=== PATIENT | female | born 1950 | race Caucasian/White ===

== ENCOUNTER 2017-08-02 13:06 | Emergency (ER) | payer SELFPAY ==
[~2017-08-02] VITALS: Ht 166.4 cm; Wt 50.0 kg
[~2017-08-02 13:06] MED LIST: CELLCEPT500 MG PO; LIPITOR40 MG PO; MAGNESIUM-OX400 MG PO; NEXIUM40 M1 PO; PREDNISONE5 MG PO; [UNRECOGNIZED DRUG - OTHER]
[2017-08-02 14:56] LABS: INFLUENZA A NONE DETECTED (NONE DETECT); INFLUENZA B NONE DETECTED (NONE DETECT)
[2017-08-02] MEDS ORDERED: DOXYCYC MONO100 M2 PO (15:10)
[2017-08-02 15:20] VITALS: BP 128/78
== END 2017-08-02 15:20 | disposition home or self-care (01) | DRG 202 ==
LOC: ED 13:06
PROVIDERS: Family Medicine
DX: J40 Bronchitis, not specified as acute or chronic (principal); Z94.0 Kidney transplant status; R05 Cough; R50.9 Fever, unspecified; R09.81 Nasal congestion; Z99.2 Dependence on renal dialysis; M79.1 Myalgia; R51 Headache; H92.03 Otalgia, bilateral

== ENCOUNTER 2017-08-06 14:40 | Observation (INO) | payer SELFPAY ==
[~2017-08-06] VITALS: Ht 167.6 cm; Wt 52.8 kg
[~2017-08-06 14:40] MED LIST changes: +DOXYCYC MONO100 M2 PO
[2017-08-06 15:18] LABS: HEMATOCRIT 42.3 % (37.0-47.0); HEMOGLOBIN 13.7 g/dl (12.0-16.0); IMMATURE GRANULOCYTES 0.3 % (0.0-1.0); MEAN CORPUSCULAR HGB 29.7 pG CALC (26.0-32.0); MEAN CORPUSCULAR HGB CONC 32.4 g/L CALC (32.0-36.0); NEUT# 8.42 thou/uL (2.00-7.15); RED BLOOD COUNT 4.62 mill/uL (4.20-5.60); RED CELL DISTRI WIDTH 12.6 % (11.5-15.5)
[2017-08-06 15:22] LABS: MEAN CELL VOLUME 91.6 fL CALC (80.0-100.0)
[2017-08-06] MEDS ORDERED: PREDNISONE5 MG PO (15:22)
[2017-08-06] MEDS ORDERED: CELLCEPT500 MG PO (15:22)
[2017-08-06] MEDS ORDERED: [UNRECOGNIZED DRUG - OTHER] PO (15:22)
[2017-08-06] MEDS ORDERED: NEXIUM40 M1 PO (15:23)
[2017-08-06] MEDS ORDERED: ATORVASTATIN CA20 MG PO (15:23)
[2017-08-06] MEDS ORDERED: SERTRALINE25 MG PO (15:24)
[2017-08-06 15:38] LABS: ALBUMIN 4.5 g/dL (3.2-5.0); ALKALINE PHOSPHATASE 61 u/l (38-126); ANION GAP 17 (6-22 (CALC)); BUN 27 mg/dL (8-23); BUN/CREATININE RATIO 26 (12-20 (CALC)); CARBON DIOXIDE 24 mmol/l (22-30); CHLORIDE 98 mmol/l (95-108); GFR 55 ML/MIN (>=60 (CALC)); GFR FOR AFR.AMER. > 60 ML/MIN (>=60 (CALC)); LIPASE 384 u/l (23-300); POTASSIUM 3.9 mmol/l (3.5-5.1); SGOT/AST 18 u/l (9-36); SGPT/ALT 23 u/l (11-66); SODIUM 135 mmol/l (137-146); TOTAL PROTEIN 7.3 g/dL (6.3-8.2)
[2017-08-06 16:50] LABS: URINE BILIRUBIN - DIPSTICK NEGATIVE (NEGATIVE); URINE BLOOD DIPSTICK NEGATIVE (NEGATIVE); URINE COLOR YELLOW; URINE GLUCOSE - DIPSTICK NEGATIVE (NEGATIVE); URINE KETONE TRACE mg/dL (NEGATIVE); URINE LEUK ESTERASE NEGATIVE (NEGATIVE); URINE NITRITE - DIPSTICK NEGATIVE (Negative); URINE PROTEIN - DIPSTICK TRACE mg/dL (NEG-TRACE); URINE SPECIFIC GRAVITY >=1.030; URINE UROBILINOGEN - DIPSTICK 0.2 E.U./dL (0.2)
[2017-08-06 16:53] LABS: URINE CLARITY CLEAR
[2017-08-06 19:20] VITALS: BP 137/85
[2017-08-07 04:15] VITALS: BP 140/81
[2017-08-07 05:52] LABS: HEMATOCRIT 37.3 % (37.0-47.0); HEMOGLOBIN 12.2 g/dl (12.0-16.0); MEAN CELL VOLUME 92.3 fL CALC (80.0-100.0); MEAN CORPUSCULAR HGB 30.2 pG CALC (26.0-32.0); MEAN CORPUSCULAR HGB CONC 32.7 g/L CALC (32.0-36.0); RED BLOOD COUNT 4.04 mill/uL (4.20-5.60); RED CELL DISTRI WIDTH 12.4 % (11.5-15.5)
[2017-08-07 06:10] LABS: ANION GAP 12 (6-22 (CALC)); BUN 18 mg/dL (8-23); BUN/CREATININE RATIO 21 (12-20 (CALC)); CARBON DIOXIDE 25 mmol/l (22-30); CHLORIDE 102 mmol/l (95-108); CREATININE 0.8 mg/dL (0.5-1.0); GFR > 60 ML/MIN (>=60 (CALC)); GFR FOR AFR.AMER. > 60 ML/MIN (>=60 (CALC)); MAGNESIUM 1.1 mg/dL (1.6-2.3); POTASSIUM 3.7 mmol/l (3.5-5.1); SODIUM 136 mmol/l (137-146)
[2017-08-07 07:31] VITALS: BP 134/87
[2017-08-07 15:40] VITALS: BP 150/82
[2017-08-07 19:55] VITALS: BP 142/90
[2017-08-08 04:20] VITALS: BP 151/90
[2017-08-08 05:22] LABS: ANION GAP 13 (6-22 (CALC)); BUN 11 mg/dL (8-23); BUN/CREATININE RATIO 16 (12-20 (CALC)); CARBON DIOXIDE 22 mmol/l (22-30); CHLORIDE 101 mmol/l (95-108); CREATININE 0.7 mg/dL (0.5-1.0); GFR > 60 ML/MIN (>=60 (CALC)); GFR FOR AFR.AMER. > 60 ML/MIN (>=60 (CALC)); POTASSIUM 3.6 mmol/l (3.5-5.1); SODIUM 132 mmol/l (137-146)
[2017-08-08 05:24] LABS: MAGNESIUM 1.6 mg/dL (1.6-2.3)
[2017-08-08 07:27] VITALS: BP 147/86
[2017-08-08] MEDS ORDERED: ZOFRAN4 MG/TAB PO (12:36)
== END 2017-08-08 14:10 | disposition home or self-care (01) | DRG 392 ==
LOC: ED 14:40 → ED-I 15:08 → ED 15:08 → ED-I 17:26 → ED 17:54 → MS2 17:55
PROVIDERS: Family Medicine; Nurse Practitioner Family; ADMIT Internal Medicine; ATTEND Internal Medicine
DX: R11.2 Nausea with vomiting, unspecified (principal); R26.89 Other abnormalities of gait and mobility; R51 Headache; R42 Dizziness and giddiness; H53.2 Diplopia; Q61.3 Polycystic kidney, unspecified; Q44.6 Cystic disease of liver; E83.42 Hypomagnesemia; J98.4 Other disorders of lung; Z94.0 Kidney transplant status; K57.90 Diverticulosis of intestine, part unspecified, without perforation or abscess without bleeding; Z79.899 Other long term (current) drug therapy
CPT/HCPCS: G0378; J3475

== ENCOUNTER 2017-08-10 17:38 | Inpatient (IN) | payer SELFPAY ==
[~2017-08-10] VITALS: Ht 167.6 cm; Wt 52.2 kg
[~2017-08-10 17:38] MED LIST changes: +ATORVASTATIN CA20 MG PO; +SERTRALINE25 MG PO; +ZOFRAN4 MG/TAB PO; +[UNRECOGNIZED DRUG - OTHER] PO
--- NOTE | 2017-08-10 17:51 | NUR ---
PT IN ROOM 13, JOSHUA RN AT BEDSIDE
--- NOTE | 2017-08-10 18:27 | NUR ---
PT SEN BY EDP, RESTS IN THE STRETCHER IN NO ACUTE DISTRESS.
[2017-08-10 18:29] LABS: HEMATOCRIT 37.5 % (37.0-47.0); HEMOGLOBIN 12.5 g/dl (12.0-16.0); IMMATURE GRANULOCYTES 0.5 % (0.0-1.0); MEAN CELL VOLUME 90.6 fL CALC (80.0-100.0); MEAN CORPUSCULAR HGB 30.2 pG CALC (26.0-32.0); MEAN CORPUSCULAR HGB CONC 33.3 g/L CALC (32.0-36.0); NEUT# 18.28 thou/uL (2.00-7.15); RED BLOOD COUNT 4.14 mill/uL (4.20-5.60); RED CELL DISTRI WIDTH 12.4 % (11.5-15.5)
[2017-08-10 18:49] LABS: ALBUMIN 3.8 g/dL (3.2-5.0); ALKALINE PHOSPHATASE 56 u/l (38-126); ANION GAP 22 (6-22 (CALC)); BILIRUBIN, TOTAL 1.1 mg/dL (0.0-1.4); BUN 21 mg/dL (8-23); BUN/CREATININE RATIO 25 (12-20 (CALC)); CARBON DIOXIDE 18 mmol/l (22-30); CHLORIDE 98 mmol/l (95-108); CREATININE 0.8 mg/dL (0.5-1.0); GFR > 60 ML/MIN (>=60 (CALC)); GFR FOR AFR.AMER. > 60 ML/MIN (>=60 (CALC)); POTASSIUM 3.5 mmol/l (3.5-5.1); SGOT/AST 15 u/l (9-36); SGPT/ALT 30 u/l (11-66); SODIUM 134 mmol/l (137-146); TOTAL PROTEIN 6.2 g/dL (6.3-8.2)
--- NOTE | 2017-08-10 19:17 | NUR ---
PT WAS IN BR AND VOIDED...OBTAINED SAMPLE AND MOVED BOWELS. UP TO W/C AND TO CT. RETURNED NOW.
[2017-08-10 19:38] LABS: URINE BLOOD DIPSTICK TRACE-INTACT (NEGATIVE); URINE CLARITY SL CLOUDY; URINE COLOR YELLOW; URINE GLUCOSE - DIPSTICK NEGATIVE (NEGATIVE); URINE KETONE >=80 mg/dL (NEGATIVE); URINE LEUK ESTERASE NEGATIVE (NEGATIVE); URINE NITRITE - DIPSTICK NEGATIVE (Negative); URINE PROTEIN - DIPSTICK 30 mg/dL (NEG-TRACE); URINE SPECIFIC GRAVITY 1.025; URINE UROBILINOGEN - DIPSTICK 0.2 E.U./dL (0.2)
[2017-08-10 19:40] LABS: URINE BILIRUBIN - DIPSTICK NEGATIVE (NEGATIVE)
--- NOTE | 2017-08-10 19:42 | NUR ---
PT IS ALERT AND ORIENTED. NAD.
[2017-08-10 19:47] LABS: URINE BACTERIA FEW hpf; URINE SQUAMOUS EPITHELIAL CELL FEW EPI/hpf (0-FEW)
--- NOTE | 2017-08-10 19:59 | NUR ---
BLOOD CULTURES OBTAINED BY LAB
--- NOTE | 2017-08-10 20:04 | NUR ---
TO CT VIA STRETCHER
--- NOTE | 2017-08-10 20:21 | NUR ---
RETURNED FROM CT. AT BEDSIDE.
--- NOTE | 2017-08-10 22:25 | NUR ---
REPORT CALLED TO ICU. (WAITING FOR THEM TO READY THEY JUST GOT A PT) REPORT TO DIANDRA. IV SITE LEAKING. WILL HAVE TO RESTART IV.
--- NOTE | 2017-08-10 22:50 | NUR ---
TO FLOOR WITH NURSE. IV INFUSING. AT BEDSIDE. PT IS PINK/WARM AND DRY. RESP EASY REG CM:NSR WITHOUT ECTOPY
[2017-08-10 22:52] VITALS: BP 152/86
--- NOTE | 2017-08-10 22:52 | NUR ---
66 yr old sallow appearing female admitted icu5 as medsurg tele overflow. stood with assist then to bed. bed weight obtained. monitoring engineer shows sinus rhythm. #20 rt hand ns infusing @ 100cchr. history obtained per pt & er record. oriented to room. fall precautions initiated.
--- NOTE | 2017-08-11 01:00 | NUR ---
up to bsc to void. c/o dizziness when up. dyan well.
--- NOTE | 2017-08-11 01:50 | NUR ---
lab here. blood drawn.
[2017-08-11 04:00] VITALS: BP 98/52
--- NOTE | 2017-08-11 04:00 | NUR ---
bus driver/monitor shows sinus rhythm.
--- NOTE | 2017-08-11 05:20 | NUR ---
lab here. blood drawn.
[2017-08-11 06:05] LABS: HEMATOCRIT 34.1 % (37.0-47.0); HEMOGLOBIN 11.3 g/dl (12.0-16.0); IMMATURE GRANULOCYTES 0.3 % (0.0-1.0); MEAN CELL VOLUME 90.5 fL CALC (80.0-100.0); MEAN CORPUSCULAR HGB CONC 33.1 g/L CALC (32.0-36.0); NEUT# 10.72 thou/uL (2.00-7.15); RED BLOOD COUNT 3.77 mill/uL (4.20-5.60); RED CELL DISTRI WIDTH 12.3 % (11.5-15.5)
[2017-08-11 06:19] LABS: ANION GAP 12 (6-22 (CALC)); BUN 20 mg/dL (8-23); BUN/CREATININE RATIO 22 (12-20 (CALC)); CARBON DIOXIDE 23 mmol/l (22-30); CHLORIDE 103 mmol/l (95-108); CREATININE 0.9 mg/dL (0.5-1.0); GFR > 60 ML/MIN (>=60 (CALC)); GFR FOR AFR.AMER. > 60 ML/MIN (>=60 (CALC)); POTASSIUM 3.8 mmol/l (3.5-5.1); SODIUM 134 mmol/l (137-146)
--- NOTE | 2017-08-11 07:30 | NUR ---
PT ALERT AND ORIENTED RESTING IN BED, DENIES N/V AT THIS TIME, IVF CONTINUE ORDERED, AM ASSESSMENT COMPLETED SEE INTERVENTIONS SKIN WARM ADN DRY, ABRASION NOTED TO NOSE PT STATES FROM FALLING AT HOME, ABRASION IS DRY/SCABBED NO S/S OF INFECTION, ABD SOFT BS ACTIVE, CALL HARRIS WITHIN REACH, DENIES COMPLAINTS AT THIS TIME, SAFETY MEASURES REINFORCED
[2017-08-11 08:00] VITALS: BP 136/77
--- NOTE | 2017-08-11 09:30 | NUR ---
PT FRIEND BROUGHT NF MEDS FROM HOME, IVF CONTINUE ORDERED, DENIES NAUSEA, DIET ORDERED AND WILL MONITOR TOLERANCE, CALL HARRIS WITHIN REACH, VISITORS AT BEDSIDE, WILL CONTINUE TO MONITOR.
--- NOTE | 2017-08-11 11:37 | NUR ---
TOLERATED CHEERIOS THIS AM, TOOK PO MEDICATIONS W/O INCIDENT, IVF CONTINUE, IN TO SEE PATIENT EARLIER AND PLAN OF CARE DISCUSSED, PT AWARE OF CARDIOLOGY CONSULT, WILL CONTINUE TO MONITOR.
[2017-08-11 11:55] VITALS: BP 147/84
--- NOTE | 2017-08-11 13:59 | NUR ---
PT RESTING IN BED, OFFERS NO NEW COMPLAINTS, INTERMITTENT VISITORS AT BEDSIDE, CALL HARRIS WITHIN REACH, WILL CONTINUE TO MONITOR.
--- NOTE | 2017-08-11 14:52 | NUR ---
PT ASKING ABOUT D/C RELATED TO PLANS TO FLY BACK TO [place] ON THURSDAY, EDUCTAED REGARIDNG D/C PROCESS, VERBALIZES UNDERSTANDING, CALL HARRIS WITHIN REACH
[2017-08-11 16:00] VITALS: BP 165/83
--- NOTE | 2017-08-11 16:04 | NUR ---
PT REWTING IN BED VISITOR ATB EDSIDE, TOLERATING DIET IN SMALL AMOUNTS W/O INCIDENT, CALL HARRIS WITHIN REACH
--- NOTE | 2017-08-11 18:38 | NUR ---
AT BEDSIDE TO SEE PT
[2017-08-11 19:00] VITALS: BP 158/87
--- NOTE | 2017-08-11 19:40 | NUR ---
awake. denies pain. phototypesetting equipment monitor shows sinus rhythm pvcs. #20 rfa ns infusing well. po fluids taken fair. voided per bsc. urine clear yellow tonite. c/o dizziness when up. fall precautions cont.
--- NOTE | 2017-08-11 22:30 | NUR ---
assisted to bsc. c/o dizziness upon transfer.
[2017-08-12] VITALS (7 sets, daily range): BP systolic 135–160; BP diastolic 74–95
--- NOTE | 2017-08-12 00:01 | NUR ---
eyes closed. no acute distress. summer analyst shows sinus rhythm pvcs.
--- NOTE | 2017-08-12 00:30 | NUR ---
assisted to bsc. dyan gamez.
--- NOTE | 2017-08-12 02:20 | NUR ---
voided per bsc. dyan well.
--- NOTE | 2017-08-12 04:00 | NUR ---
heating engineer shows sinus rhythm pvcs.
--- NOTE | 2017-08-12 05:00 | NUR ---
lab here. blood drawn.
[2017-08-12 05:29] LABS: HEMATOCRIT 36.6 % (37.0-47.0); HEMOGLOBIN 12.6 g/dl (12.0-16.0); IMMATURE GRANULOCYTES 0.5 % (0.0-1.0); MEAN CELL VOLUME 88.4 fL CALC (80.0-100.0); MEAN CORPUSCULAR HGB 30.4 pG CALC (26.0-32.0); MEAN CORPUSCULAR HGB CONC 34.4 g/L CALC (32.0-36.0); NEUT# 11.22 thou/uL (2.00-7.15); RED BLOOD COUNT 4.14 mill/uL (4.20-5.60); RED CELL DISTRI WIDTH 12.2 % (11.5-15.5)
--- NOTE | 2017-08-12 05:30 | NUR ---
zofran 4mg po given per request for nausea.
[2017-08-12 05:48] LABS: ANION GAP 16 (6-22 (CALC)); BUN 11 mg/dL (8-23); BUN/CREATININE RATIO 16 (12-20 (CALC)); CARBON DIOXIDE 23 mmol/l (22-30); CHLORIDE 95 mmol/l (95-108); CREATININE 0.7 mg/dL (0.5-1.0); GFR > 60 ML/MIN (>=60 (CALC)); GFR FOR AFR.AMER. > 60 ML/MIN (>=60 (CALC)); POTASSIUM 3.1 mmol/l (3.5-5.1); SODIUM 131 mmol/l (137-146)
--- NOTE | 2017-08-12 06:45 | NUR ---
transferred to [facility] per bed to room 280. report given to wang pastrana lpn.
--- NOTE | 2017-08-12 07:45 | NUR ---
AM ASSESSMENT COMPLETED SEE INTERVENTIONS, PT WITH TEMP 102.3 TYMPANICALLY WILL MEDICATE ORDERED, LUNGS CLEAR VS STABLE, TELE READING SR RATE IN THE 90'S WITH PAC/PVC'S NOTED, IVF INFUSING AT PRESCRIBED RATE, PT DROWSY, BUT AROUSES EASILY TO VERBAL STIMULI AND ANSWERS APPROPROIATELY, SAFETY MEASURES REINFORCED, AGAIN PT ASKING BOAUT D/C RELATED TO PLANNED FLIGHT HOME TO [place] TOMORROW, EDUCATED AGAIN REGARDING D/C PROCESS, PT VERBALIZES UNDERSTANDING,
--- NOTE | 2017-08-12 08:25 | NUR ---
SON TREASURE AND FRIEND FANTASMA AT BEDSIDE, PT RESTING, TOOK TYLENOL EARLIER WILL RECEHCK TEMP SHORTLY, COMFORT MEASURES PROVIDED, REFUSED BREAKFAST AND GINGERALE AND SALTINES PROVIDED BUT NO INTAKE AT THIS TIME. DENIES NAUSEA STATES "I JUST DON'T FEEL LIKE EATING"
--- NOTE | 2017-08-12 09:05 | NUR ---
REPEAT TEMP 98.8, IN TO SEE PATIENT, PLAN OF CARE DISCUSSED, CONSULTED WELL, PT AWARE, WILL CONTINUE TO MONITOR.
--- NOTE | 2017-08-12 10:15 | NUR ---
CONSENT OBTAINED FOR LUMBAR PUNCTURE, CRISTAL LAY CRNA CURRENTLY AT BEDSIDE TO PERFORM PROCEDURE, PT SON AT BEDSIDE WELL.
--- NOTE | 2017-08-12 11:30 | NUR ---
UNSUCCESSFUL LP, AWARE NO SPECIMEN OBTAINED
--- NOTE | 2017-08-12 14:40 | NUR ---
PT AMBULATED TO BATHROOM WITH ASSIST, POOR BALANCE AND ATAXIC GAIT NOTED, ASSIST PROVIDED, INSTRUCTED TO CALL FOR ASSIST WHEN DONE
--- NOTE | 2017-08-12 15:46 | NUR ---
PT SITTING UP ON EDGE OF BED, SON AT BEDSIDE
--- NOTE | 2017-08-12 16:37 | NUR ---
MEDICTAED FOR BP 160/95 ORDERED AND TYLENOL GIVEN FOR TEMP 99.9
--- NOTE | 2017-08-12 16:42 | NUR ---
PT UNABLE TO TAKE AM MEDICATIONS, HAS ATTEMPTED ALL DAY WITHOUT SUCCESS. STEPHEN BEJARANO AWARE WILL CHANGE POTASSIUM TO IV
--- NOTE | 2017-08-12 19:30 | NUR ---
PATIENT RESTING IN BED WITH MULTIPLE VISITORS AT BEDSIDE. PATIENT IS AWAKE ALERT AND ORIENTEDX3. NO COMPLAINTS AT THIS TIME EXCEPT THAT SHE DOESN'T FEEL LIKE EATING. NO REAL NAUSEA AND DECLINES ANY ANTIEMETICS AT THIS TIME. IV SITE TO RIGHT FOREARM INTACT. TELE MONITOR IN PLACE. SAFETY PRECAUTIONS REINFORCED. CALL LIGHT IN REACH. WILL CONT TO MONITOR.
--- NOTE | 2017-08-12 20:30 | NUR ---
NEW IV SITE STARTED TO RIGHT UPPER ARM-#22 GAUGE WITH GOOD BLOOD RETURN. SITE TO RIGHT FOREARM D/C. IVF NS PATENT AND INFUSING AT 100CC/HR. BRUISE NOTED TO THE BRIDGE OF PATIENT NOSE. SAFETY PRECAUTIONS REINFORCED. CALL LIGHT IN REACH.
--- NOTE | 2017-08-12 22:45 | NUR ---
TEMP-101.1. MEDICATED WITH TYLENOL 650MG PO FOR TEMP. LEVAQUIN INFUSING ORDERED. CALL LIGHT IN REACH. WILL CONT TO MONITOR.
[2017-08-13 00:19] VITALS: BP 125/76
--- NOTE | 2017-08-13 01:10 | NUR ---
PATIENT RESTING IN BED WITH NO COMPLAINTS AT THIS TIME. MEDICATED WITH SOLU-MEDROL 40MG IVP ORDERED. VANCO 1 GM HUNG ORDERED. ASSISTED TO BR TO VID AND THEN BACK TO BED. SAFETY PRECAUTIONS REINFORCED.CALL LIGHT IN REACH. WILL CONT TO MONITOR.
--- NOTE | 2017-08-13 03:18 | NUR ---
TEMP-98.7 AT THIS TIME-RESTING IN BED WITH NO COMPLAINTS AT THIS TIME. IVF PATENT AND INFUSING VIA RIGHT UPPER ARM. SITE APPEARS HEALTHY. CALL LIGHT IN REACH. WILL CONT TO MONITOR.
[2017-08-13 03:40] VITALS: BP 115/72
[2017-08-13 03:48] LABS: HEMATOCRIT 36.3 % (37.0-47.0); IMMATURE GRANULOCYTES 0.6 % (0.0-1.0); MEAN CELL VOLUME 89.9 fL CALC (80.0-100.0); MEAN CORPUSCULAR HGB 29.7 pG CALC (26.0-32.0); MEAN CORPUSCULAR HGB CONC 33.1 g/L CALC (32.0-36.0); NEUT# 11.18 thou/uL (2.00-7.15); RED BLOOD COUNT 4.04 mill/uL (4.20-5.60); RED CELL DISTRI WIDTH 12.3 % (11.5-15.5)
[2017-08-13 05:19] LABS: BUN 12 mg/dL (8-23); CARBON DIOXIDE 24 mmol/l (22-30); CHLORIDE 97 mmol/l (95-108); CREATININE 0.8 mg/dL (0.5-1.0); GFR > 60 ML/MIN (>=60 (CALC)); GFR FOR AFR.AMER. > 60 ML/MIN (>=60 (CALC)); MAGNESIUM 1.7 mg/dL (1.6-2.3); SODIUM 130 mmol/l (137-146)
[2017-08-13 05:20] LABS: POTASSIUM 3.6 mmol/l (3.5-5.1)
--- NOTE | 2017-08-13 06:45 | NUR ---
PATIENT APPEARS SLEEPING AT THIS TIME. IVF PATENT AND INFUSING AT 100CC/HR. CALL LIGHT IN REACH. WILL CONT TO MONITOR.
--- NOTE | 2017-08-13 08:00 | NUR ---
SHIFT CHANGE REPORT FROM QUINTEN MEJIAS RESTING WITH EYES CLOSED BUT RESPONDS TO VERBAL STIMULI, CO TO PAIN TO LOWER BACK AT SITE OF SPINAL TAP, IVF INFUSING, TELE MONITOR IN PLACE, CALL HARRIS IN REACH, WILL CONTINUE TO MONITOR.
[2017-08-13 08:54] VITALS: BP 149/90
--- NOTE | 2017-08-13 09:48 | NUR ---
S: ARIEL HALE is a 66 F who presents with weakness, malaise, and headache with possible pneumonia. She has a history of kidney trasnplant, polycystic kidney and liver disease, HTN, L lung mass, arthritis. All medications in patient's chart were reviewed. O: VS: BP 149/90 mmHg, P 99 bpm, RR 21 bpm,T 99.7 (F) W 52.2 kg, HT 66 in, Scr= 0.8,CrCl= 56 ml/min A: Blood culture is pending. P: Patient is on aztreonam and levaquin. Vancomycin ordered for pharmacy to dose. Start Vancomycin 1,000 mg IV Q24H. Vancomycin trough is drawn before the 4th dose on 08/16/17 0430. Vancomycin goal trough is between 15-20 mcg/ml. Pharmacy will follow and or advise on antibiotics use as needed.
--- NOTE | 2017-08-13 10:00 | NUR ---
MAREN (BILINGUAL MEDICAL RECEPTIONIST) AT [facility] IN [place] HAS BEEN COMMUNICATING WITH NURSING/MEDICAL/CASE MANAGEMENT STAFF FOR TRANSFER PROCESSING FOR PT. REPORTED DR SOUSA HAS ACCEPTER PT WHO WILL BE ADMITTED TO ROOM 315. REQUESTED PAPER WORK WHICH ARE BEING SENT, WILL CONTINUE TO MONITOR AND ADDRESS NEEDS.
[2017-08-13 11:00] VITALS: BP 137/91
[2017-08-13] MEDS ORDERED: ACETAMIN325 MG PO (11:07)
--- NOTE | 2017-08-13 12:55 | NUR ---
ASSISTED TO BR AT THIS TIME, ASSISTED WITH SPONGE BATH, DRESSING, AND BACK TO BED. ANTICIPATING TRANSFER TO [facility], POOR APPETITE. ALL NEEDS ADDRESSED, FAMILY IN ROOM.
--- NOTE | 2017-08-13 14:35 | NUR ---
PT SITTING UP UP AT BEDSIDE AT THIS TIME READY TO LEAVE, MEDICAL TRANSPORT HERE RECEIVING PT NOW, REPORT WILL BE CALLED TO [facility].
--- NOTE | 2017-08-13 15:00 | NUR ---
PT LEFT WITH # [address] [facility]
--- NOTE | 2017-08-13 15:02 | NUR ---
REPORT GIVEN TO BHARATHI AT [facility] IN [place], PT JUST LEFT VIA MEDICAL TRANSPORT.
--- NOTE | 2017-08-13 15:03 | NUR ---
Discharge instructions given. Patient verbalizes understanding of same. Discharged in stable condition via Medical Transport to *Other with family. All belongings sent with pt.
== END 2017-08-13 14:35 | disposition short-term general hospital (02) | DRG 194 ==
LOC: ED 17:38 → ED-I 17:55 → ED 17:55 → ED-I 20:25 → ED 20:47 → MS2 20:48 → ICU 20:48 → MS2 08-12 06:50
PROVIDERS: Emergency Medicine; Internal Medicine Nephrology; Nurse Practitioner Family; ADMIT Internal Medicine; ATTEND Internal Medicine
PROC: 00JU3ZZ Inspection of Spinal Canal, Percutaneous Approach (ICD-10-PCS; principal; 2017-08-12)
DX: J18.9 Pneumonia, unspecified organism (principal); Q61.3 Polycystic kidney, unspecified; Q44.6 Cystic disease of liver; E83.42 Hypomagnesemia; E87.1 Hypo-osmolality and hyponatremia; Z94.0 Kidney transplant status; R55 Syncope and collapse; J98.4 Other disorders of lung; I10 Essential (primary) hypertension; K21.9 Gastro-esophageal reflux disease without esophagitis; E87.6 Hypokalemia; H53.2 Diplopia; R26.89 Other abnormalities of gait and mobility; R11.2 Nausea with vomiting, unspecified; Z88.0 Allergy status to penicillin; Z79.899 Other long term (current) drug therapy
CPT/HCPCS: J1956; J3370; J3475; S0164